=== PATIENT | male | born 1945 | race Caucasian/White ===

== ENCOUNTER 2018-03-24 13:20 | Emergency (ER) | payer MEDICARE, OTHER ==
[2018-03-24 15:42] LABS: ADD MAN DIFF? NO
[2018-03-24 15:46] LABS: BASO % 0 % (0-3); EOS # 0.1 x10^3/uL (0.0-0.7); EOS % 2 % (0-3); HEMATOCRIT 33.4 % (39.0-53.0); HEMOGLOBIN 11.2 g/dL (13.0-17.5); LYMPH % 16 % (24-48); MEAN CORPUSCULAR HEMOGLOBIN 31 pg (25-35); MEAN CORPUSCULAR HGB CONC 34 g/dL (31-37); MEAN CORPUSCULAR VOLUME 93 fL (79-100); MONO # 0.5 x10^3/uL (0.0-1.1); MONO % 8 % (0-9); NEUT # 4.7 x10^3uL (1.8-7.7); NEUT % 74 % (31-73); PLATELET COUNT 221 x10^3/uL (140-400); RED BLOOD COUNT 3.59 x10^6/uL (4.30-5.70); RED CELL DISTRIBUTION WIDTH 16.9 % (11.5-14.5); WHITE BLOOD COUNT 6.4 x10^3/uL (4.0-11.0)
[2018-03-24 15:55] LABS: ANION GAP 11 (6-14); BLOOD UREA NITROGEN 22 mg/dL (8-26); BUN/CREATININE RATIO 16 (6-20); CALCIUM 8.8 mg/dL (8.5-10.1); CARBON DIOXIDE 26 mmol/L (21-32); CHLORIDE 107 mmol/L (98-107); CREATININE 1.4 mg/dL (0.7-1.3); GFR 49.5; GLUCOSE 152 mg/dL (70-99); POTASSIUM 3.3 mmol/L (3.5-5.1); SODIUM 144 mmol/L (136-145)
[2018-03-24 15:56] LABS: PARTIAL THROMBOPLASTIN TIME 23 SEC (24-38); PROTHROMBIN TIME PATIENT 12.3 SEC (11.7-14.0)
[2018-03-24 16:03] LABS: ALBUMIN 3.2 g/dL (3.4-5.0); ALBUMIN/GLOBULIN RATIO 0.6 (1.0-1.7); ALK PHOS 61 U/L (46-116); ALT (SGPT) 37 U/L (16-63); AST (SGOT) 29 U/L (15-37); CREATINE KINASE 134 U/L (39-308); TOTAL BILIRUBIN 0.5 mg/dL (0.2-1.0); TOTAL PROTEIN 8.3 g/dL (6.4-8.2)
[2018-03-24 16:08] LABS: CKMB INDEX 0.7 % (0-4); CREATINE KINASE 135 U/L (39-308)
[2018-03-24 16:09] LABS: LACTIC ACID 1.5 mmol/L (0.4-2.0)
== END 2018-03-24 19:28 | disposition short-term general hospital (02) ==
LOC: ER 13:20
DX: M89.9 Disorder of bone, unspecified (principal); M79.652 Pain in left thigh; E11.9 Type 2 diabetes mellitus without complications; I25.10 Atherosclerotic heart disease of native coronary artery without angina pectoris; I10 Essential (primary) hypertension; F17.210 Nicotine dependence, cigarettes, uncomplicated; Z90.49 Acquired absence of other specified parts of digestive tract; Z96.659 Presence of unspecified artificial knee joint
CPT/HCPCS: 36415; 73552; 80053; 82550; 82553; 83605; 85025; 85610; 85730; 93971; 99285-25